=== PATIENT | female | born 1955 | race Caucasian/White ===

== ENCOUNTER → 2017-01-17 | Day surgery (SDC) | payer OTHER ==
[~2017-01-17] MED LIST: BUPIVACAINE/EPINEPHRINE 0.5% 50 ML VIAL ONE; EXCETAB2 PO; KETOROLAC TROMETHAMINE 60 MG/2 ML (IM) VIAL IM ONE; LACTATED RINGER'S 1000 ML INJ 1,000 ML ONE; MIDAZOLAM HCL 2 MG/2 ML VIAL ONE; ONDANSETRON HCL 4 MG/2 ML VIAL IV PUSH ONE; PROPOFOL 200 MG/20 ML AMP IV ONE; ZOFR4TAB3 PO; ceFAZolin 2 GM PREMIX 50 ML ONE
--- NOTE | 2017-01-17 14:30 | TN ---
cc: CHARLENE AVILES DATE OF SURGERY: 01/17/2017 PREOPERATIVE DIAGNOSIS Chronic cholecystitis bilious media. POSTOPERATIVE DIAGNOSIS: Chronic cholecystitis, bilious media. PROCEDURE: Laparoscopic cholecystectomy. PHYSICIAN: Charlene Aviles MD. GROUNDS KEEPER: None. ANESTHESIA General with local anesthetic BLOOD LOSS Less then 10 cc. COMPLICATIONS None. FINDINGS Significant inflammation around the gallbladder, gallbladder mostly chronic, consistent with chronic cholecystitis. INDICATIONS FOR PROCEDURE The patient is a 61-year-old female who developed several months of recurrent right upper quadrant pain. Workup did reveal a possible gallstones as well as a significant decreased and ejection fraction of 10%. The patient's symptoms were consistent with biliary in nature. Risks, benefits, alternatives to laparoscopic cholecystectomy discussed with the patient and she agreed to undergo the procedure. PROCEDURE The patient taken to the operating room at length of present and placed in supine position, placed under general endotracheal anesthesia. The patient's abdomen was prepped and draped in sterile fashion. Time-out was performed. The abdomen was entered through Corley direct entry technique below the umbilicus. A 10-mm balloon trocar was placed in the abdomen and direct visualization. Local anesthetic was used at this port site as well as all port sites. On the abdomen survey the abdomen had no evidence of any complication from our entry. I placed three 5 mm ports in the right upper quadrant under visualization laparoscope. We were able to grasp the fundus of the gallbladder tract upward. They disclosed multiple chronic adhesions were taken down with hook electrocautery. We did use of cautery as well as a [place] dissector to easily dissect the triangle Calot and the fundus cystic artery and cystic duct. Critical view of safety was obtained. We divided cystic duct and artery with endoshears after we had placed laparoscopic Endo clips proximal and distal on the structures. Gallbladder is removed the gallbladder fossa with hook electrocautery. The gallbladder is removed the abdomen with the EndoCatch bag with the Corley periumbilical port. We then turned attention towards closure, there is no evidence of any complication. No bleeding or leak and no other intra-abdominal pathology. We removed ports under visualization laparoscope and expressed pneumoperitoneum. We closed the Corley entry technique with a [id number] 0 Vicryl suture. We closed the skin with 4-0 Monocryl and Dermabond. The patient was discontinued anesthesia taken to PACU in stable condition. The patient tolerated procedure well. No apparent complications. All counts were correct. I was present. Entire procedure. MD LYNN Garcia/marc /9:37 AM /2:16 PM
== END | disposition home or self-care (01) ==
LOC: ESDC 07:03
PROVIDERS: ATTEND Surgery
DX: K80.10 Calculus of gallbladder with chronic cholecystitis without obstruction (principal)
CPT/HCPCS: 00790; 47562; 88304; J0690; J1885; J2250; J2405; J3010; J7120